=== PATIENT | male | born 1980 ===

== ENCOUNTER 2021-10-16 08:00 | Outpatient (CLI) | payer OTHER ==
--- NOTE | 2021-10-16 17:37 | XRAY Report ---
PROCEDURE: Wrist 3 View LT INDICATIONS: WRIST PAIN TECHNIQUE: 3 views of the wrist were acquired. COMPARISON: None FINDINGS: Bones: No fractures or dislocations. No suspicious bony lesions. Soft tissues: No suspicious soft tissue calcifications. IMPRESSION: No fracture. No osseous lesion. If symptoms and/or clinical concern for pathology persists, further a ssessment with repeat plain film radiographs (7-10 days) or advanced imaging (CT, MR, bone scan) shou ld be considered. Reviewed by: Marta Lopez MD, PhD on 10/16/2021 5:35 PM PDT Approved by: Marta Lopez MD, PhD on 10/16/2021 5:35 PM PDT Station ID: [id number]
== END 2021-10-16 23:59 | disposition home or self-care (01) ==
LOC: DI.WOS 08:00
PROVIDERS: ATTEND Physician Assistant
DX: M25.532 Pain in left wrist (principal)